=== PATIENT | female | born 1950 | race Caucasian/White ===

== ENCOUNTER 2019-09-04 07:57 | Outpatient (CLI) | payer OTHER ==
[~2019-09-04 07:57] MED LIST: ATENOLOL25 MG; CLARINEX5 MG/TAB PO; FIORICET 50-301 EACH PO; MILLIPRED5 MG PO; NEURONTIN600 MG; NYSTATIN-TRIAMC15 GM TP; PANADOL EXTRA500 MG PO; PREVACID30 MG; QVAR7.3 G1 IH; TUSSIONEX PENNKI5 ML PO; VAGICAINE CREAM28 GM TP; ZANTAC150 M1; ZITHROMAX500 MG PO; [UNRECOGNIZED DRUG - OTHER] PO
== END 2019-09-04 08:03 | disposition home or self-care (01) ==
LOC: RX STUDY 07:57
PROVIDERS: ATTEND Internal Medicine Gastroenterology
DX: R10.13 Epigastric pain (principal)

== ENCOUNTER 2020-09-04 08:02 | Outpatient (CLI) | payer OTHER | END 2020-09-04 08:05 | disposition home or self-care (01) | LOC: RX STUDY 08:02 | PROVIDERS: ATTEND Internal Medicine Gastroenterology | DX: R10.13 Epigastric pain (principal); K21.9 Gastro-esophageal reflux disease without esophagitis ==